=== PATIENT | female | born 1960 | race Caucasian/White ===

== ENCOUNTER 2021-07-18 14:46 | Outpatient (CLI) | payer MEDICARE, MEDICAID ==
[2021-07-18 15:59] LABS: Hemoglobin 14.4 g/dL (12.0-15.5); Mean Corpuscular Hemoglobin 33.5 pg (27.0-33.0); Mean Platelet Volume 10.9 fl (7.4-10.4); Platelet Count 70 10x3/uL (150-450); RBC Distribution Width 13.4 % (11.5-14.5)
[2021-07-18 16:05] LABS: INR-International Normal Ratio 1.1; Prothrombin Time 12.6 sec (9.5-12.1)
[2021-07-18 16:14] LABS: ALT (SGPT) 27 U/L (8-55); AST (SGOT) 29 U/L (5-34); Albumin 3.6 g/dL (3.4-4.8); Alkaline Phosphatase 67 U/L (40-110); Anion Gap 12 mmol/L (10-20); BUN (Urea Nitrogen) 7 mg/dL (9.8-20.1); Bilirubin, Direct 0.5 mg/dL (0.1-0.3); Bilirubin, Total 1.3 mg/dL (0.2-1.2); Calc. Creatinine Clearance 0 mL/min (70-130); Calcium 9.2 mg/dL (7.8-10.44); Carbon Dioxide 26 mmol/L (23-31); Chloride 104 mmol/L (98-107); Glucose 251 mg/dL (80-115); Potassium 4.1 mmol/L (3.5-5.1); Protein, Total 6.4 g/dL (5.8-8.1); Sodium 138 mmol/L (136-145)
[2021-07-19 00:10] LABS: SARS-CoV-2 PCR by NAA Not Detected (NotDetected)
== END 2021-07-18 14:47 | disposition home or self-care (01) ==
LOC: CSHLAB 14:46
PROVIDERS: ATTEND Otolaryngology Otolaryngic Allergy
DX: Z01.818 Encounter for other preprocedural examination (principal); Z20.822 Contact with and (suspected) exposure to COVID-19; D10.9 Benign neoplasm of pharynx, unspecified
CPT/HCPCS: 80048; 80076; 85027; 85610; 85730; 93005; 93010; U0003; U0005

== ENCOUNTER 2021-07-22 10:05 | Day surgery (SDC) | payer MEDICARE, MEDICAID ==
[2021-07-21 13:07] VITALS: BMI 42.4
[~2021-07-22 10:05] MED LIST: Dexamethasone 20 MG/5 ML VIAL ONE; EPINEPHrine 1 MG/ML AMP ONE; Fentanyl 100 MCG/2 ML VIAL ONE; Glycopyrrolate 0.2 MG/ML 5 ML SYRINGE ONE; Lidocaine 1% PF 5 ML VIAL ONE; Midazolam HCl 2 mg/2 ml Vial ONE; Ondansetron PF 4 MG/2 ML Vial ONE; PROPOFOL 60 ML ONE; Rocuronium Bromide 10 MG/ML (10ML VIAL) ONE; SUGAMMADEX SODIUM 200 MG/2 ML VIAL ONE
[2021-07-22] MEDS ORDERED: Lidocaine 1% MPF 2 ML VIAL ONE (10:16)
== END 2021-07-22 12:05 | disposition home or self-care (01) ==
LOC: CSHSDC 10:05
PROVIDERS: ATTEND Otolaryngology Otolaryngic Allergy
PROC: 0CBM8ZX Excision of Pharynx, Via Natural or Artificial Opening Endoscopic, Diagnostic (ICD-10-PCS; principal; 2021-07-22)
DX: D10.1 Benign neoplasm of tongue (principal); I10 Essential (primary) hypertension; Z90.710 Acquired absence of both cervix and uterus; Z79.899 Other long term (current) drug therapy
CPT/HCPCS: 36416; 88305; J0171; J1100; J2250; J2405; J2704; J3010

== ENCOUNTER 2024-08-22 14:24 | Outpatient (CLI) | payer OTHER | END 2024-08-22 14:25 | disposition home or self-care (01) | LOC: CSHULT 14:24 | PROVIDERS: ATTEND Internal Medicine | DX: Z86.79 Personal history of other diseases of the circulatory system (principal); C20 Malignant neoplasm of rectum; C54.9 Malignant neoplasm of corpus uteri, unspecified; K70.40 Alcoholic hepatic failure without coma; Z79.899 Other long term (current) drug therapy; I51.7 Cardiomegaly; I38 Endocarditis, valve unspecified | CPT/HCPCS: 93306 ==